=== PATIENT | male | born 1965 | race African-American/Black ===

== ENCOUNTER 2016-11-15 08:20 | Emergency (ER) | payer OTHER ==
[~2016-11-15] VITALS: Ht 177.8 cm; Wt 83.2 kg
[~2016-11-15 08:20] MED LIST: NAPROXEN500 MG PO
[2016-11-15] MEDS ORDERED: NASAL DECONGEST30 M4 PO (09:08)
[2016-11-15] MEDS ORDERED: ZITHROMAX Z-PA250 MG PO (09:08)
[2016-11-15 09:38] VITALS: BP 130/73
== END 2016-11-15 09:39 | disposition home or self-care (01) ==
LOC: EME 08:20
DX: H66.92 Otitis media, unspecified, left ear (principal); F17.200 Nicotine dependence, unspecified, uncomplicated
CPT/HCPCS: 99281; 99282

== ENCOUNTER 2016-12-11 19:43 | Observation (INO) | payer OTHER ==
[~2016-12-11] VITALS: Ht 177.8 cm; Wt 82.1 kg
[~2016-12-11 19:43] MED LIST changes: +NASAL DECONGEST30 M4 PO; +ZITHROMAX Z-PA250 MG PO
[2016-12-11 21:55] LABS: HEMATOCRIT 46.1 % (38.0-50.0); MCH 27.5 PG (29.0-34.0); MCV 83.5 FL (86-99); MEAN PLAT.VOLUME 10.2 uM^3 (9.0-12.4); PLATELET COUNT 231 K/uL (156-360); RBC DIS.WIDTH-SD 39.8 % (39-53); RED BLOOD COUNT 5.52 M/uL (4.00-5.50); WHITE BLOOD COUNT 8.3 K/uL (4.1-10.2)
[2016-12-11 22:05] LABS: CHLORIDE 108 mEq/L (99-109); POTASSIUM 4.4 mEq/L (3.7-5.4); SODIUM 140 mEq/L (136-147)
[2016-12-11 22:06] LABS: MAGNESIUM 2.5 mg/dL (1.3-2.7)
[2016-12-11 22:07] LABS: GLUCOSE 89 mg/dL (70-99)
[2016-12-11 22:09] LABS: ANION GAP 9 MEQ/L (2-14)
[2016-12-11 22:11] LABS: GFR ESTIMATE (CALCULATED) > 59 mL/min/
[2016-12-11 22:12] LABS: UREA NITROGEN (BUN) 17 mg/dL (9-23)
[2016-12-11 22:17] LABS: TROP-I INTERPRETATION NEGATIVE; TROPONIN-I < 0.01 ng/mL (0.0-0.30)
[2016-12-11 22:55] LABS: CREATINE KINASE 315 IU/L (1-294)
[2016-12-12 01:29] VITALS: BP 134/76
[2016-12-12 02:57] LABS: SAMPLE HEMOLYSIS CHECK 1; SAMPLE ICTERIC CHECK 0; SAMPLE LIPEMIA CHECK 0; SERUM ETHYL ALCOHOL < 10 mg/dL
[2016-12-12 05:00] VITALS: BP 118/72
[2016-12-12 08:00] VITALS: BP 123/76
[2016-12-12 09:10] LABS: LYME DISEASE SEROLOGY SCREEN NEGATIVE (NEGATIVE)
[2016-12-12 11:54] VITALS: BP 137/81
== END 2016-12-12 12:51 | disposition home or self-care (01) ==
LOC: EME 19:43 → EDOF 12-12 00:34 → ENRESERV 12-12 00:35 → 5WEST 12-12 01:09
PROVIDERS: Physician Assistant
DX: M48.06 Spinal stenosis, lumbar region (principal); M48.03 Spinal stenosis, cervicothoracic region; R20.9 Unspecified disturbances of skin sensation; R20.0 Anesthesia of skin; R51 Headache; M79.605 Pain in left leg; R06.02 Shortness of breath; R00.2 Palpitations; Z80.9 Family history of malignant neoplasm, unspecified; Z82.0 Family history of epilepsy and other diseases of the nervous system; F17.210 Nicotine dependence, cigarettes, uncomplicated
CPT/HCPCS: 70450; 70551; 71020; 72141; 72146; 72148; 80048; 81003; 82550; 83735; 84443; 84484; 85027; 86618; 93005; 99281; 99284; G0378; G0480

== ENCOUNTER 2017-01-20 03:28 | Emergency (ER) | payer OTHER ==
[~2017-01-20] VITALS: Ht 177.8 cm; Wt 83.6 kg
[2017-01-20 06:07] VITALS: BP 120/77
== END 2017-01-20 06:08 | disposition home or self-care (01) ==
LOC: EME 03:28
DX: S39.012A Strain of muscle, fascia and tendon of lower back, initial encounter (principal); R51 Headache; V53.5XXA Driver of pick-up truck or van injured in collision with car, pick-up truck or van in traffic accident, initial encounter; Y99.0 Civilian activity done for income or pay; F17.200 Nicotine dependence, unspecified, uncomplicated
CPT/HCPCS: 70450; 72100; 99281; 99283

== ENCOUNTER 2017-04-29 13:17 | Emergency (ER) | payer OTHER ==
[~2017-04-29] VITALS: Ht 180.3 cm; Wt 82.3 kg
[2017-04-29 16:14] VITALS: BP 132/66
== END 2017-04-29 16:15 | disposition home or self-care (01) ==
LOC: EME 13:17
DX: S86.911A Strain of unspecified muscle(s) and tendon(s) at lower leg level, right leg, initial encounter (principal); R20.2 Paresthesia of skin; X58.XXXA Exposure to other specified factors, initial encounter; Y99.0 Civilian activity done for income or pay; F17.200 Nicotine dependence, unspecified, uncomplicated
CPT/HCPCS: 93971; 99281; 99284